=== PATIENT | female | born 1975 | race Caucasian/White ===

== ENCOUNTER 2017-06-09 14:06 | Emergency (ER) | payer OTHER ==
[~2017-06-09] VITALS: Ht 157.5 cm; Wt 113.4 kg
[2017-06-09 14:11] VITALS: BP 160/88
[2017-06-09] MEDS ORDERED: HYDROcodone/APAP 5/325 MG 1 TAB TAB PO ONE (15:10)
[2017-06-09 15:47] VITALS: BP 141/85
== END 2017-06-09 15:47 | disposition home or self-care (01) ==
LOC: MED 14:06
DX: K04.7 Periapical abscess without sinus (principal); J45.909 Unspecified asthma, uncomplicated; M79.7 Fibromyalgia
CPT/HCPCS: 81025; 99283